=== PATIENT | male | born 1990 | race African-American/Black ===

== ENCOUNTER 2017-12-09 22:06 | Emergency (ER) | payer SELFPAY ==
[~2017-12-09] VITALS: Ht 165.1 cm; Wt 74.8 kg
[~2017-12-09 22:06] MED LIST: AMOX500C2 PO; NAPR-243 PO; PRM25T PO; TRM50T PO
--- OUTSIDE RECORDS SUMMARY | 2017-12-09 22:12 | XMS REPORT | Continuity of Care Document ---
Author Author [facility] Organization [facility] Address Unknown Phone Unavailable Allergies Active Description Code Type Severity Reaction Onset Reported/Identified Relationship to Patient Clinical Status Yes No Known Drug Allergies [id number] Drug Allergy Unknown N/A 09/27/2011 Medications There is no data. Problems Date Dx Coded Attending Type Code Diagnosis Diagnosed By 09/27/2011 Ot 527.2 09/27/2011 Ot 784.92 10/17/2011 Ot 787.03 12/22/2013 JANETTE GHOTRA [employer] Ot 726.90 12/22/2013 JANETTE GHOTRA [employer] Ot 840.9 12/22/2013 JANETTE GHOTRA [employer] Ot 959.2 12/22/2013 JANETTE GHOTRA [employer] Ot E000.0 12/22/2013 JANETTE GHOTRA [employer] Ot E015.0 12/22/2013 JANETTE GHOTRA [employer] Ot E849.3 12/22/2013 JANETTE GHOTRA [employer] Ot E927.3 04/12/2015 CRISTY HUNTER DO Ot 784.0 04/12/2015 CRISTY HUNTER DO Ot 787.02 06/26/2015 MARIZA FOWLER MD Ot 305.1 06/26/2015 MARIZA FOWLER MD Ot 931 06/26/2015 MARIZA FOWLER MD Ot E915 Procedures There is no data. Results There is no data. Encounters ACCT No. Visit Date/Time Discharge Status Pt. Type Provider Facility Loc./Unit Complaint [id number] 06/26/2015 15:04:00 06/26/2015 15:51:00 DIS Emergency MARIZA FOWLER MD [facility] ER [id number] 04/12/2015 19:52:00 04/12/2015 22:16:00 DIS Emergency CRISTY HUNTER DO [facility] ER [id number] 12/22/2013 19:19:00 12/22/2013 20:15:00 DIS Emergency JANETTE GHOTRA APRN [facility] [id number] 10/17/2011 16:08:00 Document Registration [id number] 09/27/2011 16:06:00 Document Registration
[2017-12-09] MEDS ORDERED: LACTATED RINGERS 1,000 ML IV ONE (22:20)
[2017-12-09] MEDS ORDERED: KETOROLAC 30 MG/ML VIAL IVP STA (22:20)
[2017-12-09] MEDS ORDERED: methylPREDNISolone 125 MG (Solu-MEDROL) VIAL IV STA (22:20)
--- NOTE | 2017-12-09 22:25 | ED EENT ---
History of Present Illness General Stated Complaint: TONSILLITIS Source: patient History of Present Illness Date Seen by Provider: Dec 09, 2017 Time Seen by Provider: 22:15 Initial Comments C/O SORE THROAT X 1 WEEK, GETTING WORSE HAVING DIFFICULTY SWALLOWING AND BREATHING AND SWALLOWING SALIVA, ESPECIALLY WHEN LAYING DOWN VOICE IS MUFFLED HAS HAD SUBJECTIVE FEVER NO COUGH OR URI SYMPTOMS NO KNOWN SICK CONTACTS NO HISTORY OF SIMILAR NO DR Allergies and Home Medications Allergies Coded Allergies: No Known Drug Allergies (Unverified , 09/27/11) Home Medications No Active Prescriptions or Reported Meds Review of Systems Constitutional: fever Eyes: No Symptoms Reported Ears: No Symptoms Reported Nose: no symptoms reported Mouth: no symptoms reported Throat: see HPI, pain, muffled, painful swallowing Respiratory: no symptoms reported Past Pbekejw-Jxtgzw-Pjrbeb Hx Patient Social History Recent Foreign Travel: No Contact w/Someone Who Travel: No Immunizations Up To Date Tetanus Booster (TDap): Unknown Surgeries Surgeries: Ear Surgery Neurological Neurological Disorders: Headaches /Migraines Reproductive System Hx Reproductive Disorders: No Sexually Transmitted Disease: No Physical Exam Vital Signs Vital Sign - Last 12Hours 12/09/17 22:25 Temp 98.8 Pulse 89 Resp 18 B/P (MAP) 162/107 (125) Pulse Ox 99 O2 Delivery Room Air General Appearance: WD/WN, no apparent distress, other (SPITTING OUT SALIVA, UNABLE TO SWALLOW) Eyes: bilateral eye normal inspection, bilateral eye PERRL, bilateral eye EOMI Mouth/Throat: No excessive drooling, pharynx swelling, tonsillar swelling, uvula swelling, voice changes (SLIGHTLY MUFFLED), other (APPEARS TO HAVE POSTERIOR PHARYNGEAL SWELLING--APPEARS THAT POSTERIOR PHARYNX IS TOUCHING UVULA , WELL LEFT TONSILLAR AND PRE-TONSILLAR AREA . ) Neck: full range of motion, supple, lymphadenopathy (R), lymphadenopathy (L), tender lateral Cardiovascular: regular rate, rhythm, no murmur Respiratory: normal breath sounds, no respiratory distress Neurologic/Psychiatric: customer operations representative II-XII nml as tested, no motor/sensory deficits, alert, normal mood/affect, oriented x 3 Skin: normal color, warm/dry, No rash Progress/Results/Core Measures Results/Orders Lab Results Laboratory Tests Test 12/09/17 22:18 12/09/17 22:25 Range/Units Group A Streptococcus Screen POSITIVE H NEGATIVE White Blood Count 17.1 H 4.3-11.0 10^3/uL Red Blood Count 4.37 4.35-5.85 10^6/uL Hemoglobin 13.9 13.3-17.7 G/DL Hematocrit 39 L 40-54 % Mean Corpuscular Volume 89 80-99 FL Mean Corpuscular Hemoglobin 32 25-34 PG Mean Corpuscular Hemoglobin Concent 36 32-36 G/DL Red Cell Distribution Width 12.9 10.0-14.5 % Platelet Count 322 130-400 10^3/uL Mean Platelet Volume 8.3 7.4-10.4 FL Neutrophils (%) (Auto) 82 H 42-75 % Lymphocytes (%) (Auto) 8 L 12-44 % Monocytes (%) (Auto) 8 0-12 % Eosinophils (%) (Auto) 1 0-10 % Basophils (%) (Auto) 0 0-10 % Neutrophils # (Auto) 14.1 H 1.8-7.8 X 10^3 Lymphocytes # (Auto) 1.4 1.0-4.0 X 10^3 Monocytes # (Auto) 1.4 H 0.0-1.0 X 10^3 Eosinophils # (Auto) 0.2 0.0-0.3 10^3/uL Basophils # (Auto) 0.0 0.0-0.1 10^3/uL Neutrophils % (Manual) 76 % Lymphocytes % (Manual) 12 % Monocytes % (Manual) 3 % Eosinophils % (Manual) 1 % Basophils % (Manual) 0 % Band Neutrophils 8 % Blood Morphology Comment NORMAL Sodium Level 138 135-145 MMOL/L Potassium Level 3.4 L 3.6-5.0 MMOL/L Chloride Level 102 98-107 MMOL/L Carbon Dioxide Level 26 21-32 MMOL/L Anion Gap 10 5-14 MMOL/L Blood Urea Nitrogen 8 7-18 MG/DL Creatinine 0.75 0.60-1.30 MG/DL Estimat Glomerular Filtration Rate > 60 BUN/Creatinine Ratio 11 Glucose Level 83 70-105 MG/DL Lactic Acid Level 0.73 0.50-2.00 MMOL/L Calcium Level 9.3 8.5-10.1 MG/DL Total Bilirubin 0.5 0.1-1.0 MG/DL Aspartate Amino Transf (AST/SGOT) 30 5-34 U/L Alanine Aminotransferase (ALT/SGPT) 31 0-55 U/L Alkaline Phosphatase 76 40-136 U/L Total Protein 8.2 6.4-8.2 GM/DL Albumin 4.2 3.2-4.5 GM/DL Monoscreen NEGATIVE NEGATIVE My Orders Orders - ELSACRISTY Cancino DO Saline Lock/Iv-Start (12/09/17 22:20) Ct Neck (Soft Tissue) W (12/09/17 22:20) Cbc With Automated Diff (12/09/17 22:20) Comprehensive Metabolic Panel (12/09/17 22:20) Lactic Acid Analyzer (12/09/17 22:20) Monotest (12/09/17 22:20) Rapid Strep A Screen (12/09/17 22:20) Blood Culture (12/09/17 22:20) Lactated Ringers (Lr 1000 Ml Iv Solution (12/09/17 22:20) Methylprednisolone Sod Succ (Solu-Medrol (12/09/17 22:20) Ketorolac Injection (Toradol Injection) (12/09/17 22:20) Manual Differential (12/09/17 22:25) Iohexol Injection (Omnipaque 350 Mg/Ml 1 (12/09/17 23:15) Sodium Chloride Flush (Catheter Flush Sy (12/09/17 23:15) Ceftriaxone Injection (Rocephin Injectio (12/10/17 00:00) Medications Given in ED Current Medications Medications Dose Ordered Sig/Dafne Route Start Time Stop Time Status Last Admin Dose Admin Ceftriaxone Sodium 2000 mg/ Dextrose/Water 50 ml @ 100 mls/hr ONCE ONCE IV 12/10/17 00:00 12/10/17 00:29 DC 12/10/17 00:19 100 MLS/HR Iohexol 75 ml ONCE ONCE IV 12/09/17 23:15 12/10/17 00:25 DC 12/09/17 23:13 75 ML Lactated Ringer's 1,000 ml @ 0 mls/hr Q0M ONCE IV 12/09/17 22:20 12/09/17 22:23 DC 12/09/17 22:41 0 MLS/HR Sodium Chloride 10 ml NEEDED PRN IV 12/09/17 23:15 12/10/17 00:42 DC 12/09/17 23:14 10 ML Vital Signs/I&O Vital Sign - Last 12Hours 12/09/17 12/09/17 12/10/17 12/10/17 22:25 22:45 00:06 00:38 Temp 98.8 98.8 98.2 Pulse 89 88 74 Resp 18 16 18 B/P (MAP) 162/107 (125) 121/82 (95) Pulse Ox 99 99 97 O2 Delivery Room Air Room Air Room Air Progress Note : Progress Note NO DETERIORATION IN PT'S CONDITION DURING ER STAY Diagnostic Imaging Comments CT NECK SOFT TISSUES--MARKED SWELLING AND IRREGULAR ENHANCEMENTS OF TONSILS- SUGGESTING TONSILLITIS. 10 MM FOCAL FLUID COLLECTION IN LEFT ADENOIDS, LIKELY REPRESENTING TONSILLAR ABSCESS, CAUSING MARKED SWELLING/NARROWING OF OROPHARYNX- -PER [facility] VIA FAX 2 [id number] Reviewed: Reviewed by Me Departure Communication (Admissions) Progress Notes 607--CONTACTED Hayley SUE NP TALENT SPECIALIST FOR ENT. DR. LOVE IS OUT OF TOWN ALL WEEK AND WILL BE AVAILABLE UNTIL 12/17/17. ADVISES TRANSFER. 2356--CALLED [facility] DIRECT CALL 2358--SPOKE WITH DR. RAMOS, ENT TALENT SPECIALIST. HE ACCEPTS PT FOR TRANSFER AND ADVISES TO SEND TO ER AND THEY ARE TO [facility] RESIDENT SOON PT ARRIVES. 0002--SPOKE WITH DR. MCGHEE, ER PHYSICIAN AND REPORT GIVEN. Impression Impression: Primary Impression: Peritonsillar abscess Disposition: XF SHT-TRM HOSP Condition: Stable Departure-Patient Inst. Referrals: NO,LOCAL PHYSICIAN (PCP/Family) Primary Care Physician Scripts No Active Prescriptions or Reported Meds CRISTY HUNTER DO Dec 09, 2017 22:25
[2017-12-09 22:39] LABS: BASOPHILS % (AUTO) 0 % (0-10); EOSINOPHILS # (AUTO) 0.2 10^3/uL (0.0-0.3); EOSINOPHILS % (AUTO) 1 % (0-10); HEMATOCRIT 39 % (40-54); HEMOGLOBIN 13.9 G/DL (13.3-17.7); LYMPHOCYTES # (AUTO) 1.4 X 10^3 (1.0-4.0); LYMPHOCYTES % (AUTO) 8 % (12-44); MEAN CORPUSCULAR HEMOGLOBIN 32 PG (25-34); MEAN CORPUSCULAR HGB CONC 36 G/DL (32-36); MEAN CORPUSCULAR VOLUME 89 FL (80-99); MEAN PLATELET VOLUME 8.3 FL (7.4-10.4); MONOCYTES # (AUTO) 1.4 X 10^3 (0.0-1.0); MONOCYTES % (AUTO) 8 % (0-12); NEUTROPHILS # (AUTO) 14.1 X 10^3 (1.8-7.8); NEUTROPHILS % (AUTO) 82 % (42-75); PLATELET COUNT 322 10^3/uL (130-400); RED BLOOD COUNT 4.37 10^6/uL (4.35-5.85); RED CELL DISTRIBUTION WIDTH 12.9 % (10.0-14.5); WHITE BLOOD COUNT 17.1 10^3/uL (4.3-11.0)
[2017-12-09 23:00] LABS: ALANINE AMINOTRANSFERASE 31 U/L (0-55); ALBUMIN 4.2 GM/DL (3.2-4.5); ALKALINE PHOSPHATASE 76 U/L (40-136); BILIRUBIN,TOTAL 0.5 MG/DL (0.1-1.0); BUN/CREATININE RATIO 11; CALCIUM 9.3 MG/DL (8.5-10.1); CARBON DIOXIDE 26 MMOL/L (21-32); CHLORIDE 102 MMOL/L (98-107); CREATININE SERUM 0.75 MG/DL (0.60-1.30); GFR ESTIMATED > 60; GLUCOSE 83 MG/DL (70-105); POTASSIUM 3.4 MMOL/L (3.6-5.0); SODIUM 138 MMOL/L (135-145); TOTAL PROTEIN 8.2 GM/DL (6.4-8.2)
[2017-12-09] MEDS ORDERED: IOHEXOL 350 MG/ML 100 ML (OMNIPAQUE 350) VIAL IV ONE (23:15)
[2017-12-09] MEDS ORDERED: CATHETER FLUSH 10 ML SYR IV PRN (23:15)
[2017-12-09 23:17] LABS: BAND NEUTROPHILS 8 %; BASOPHILS % (MANUAL) 0 %; EOSINOPHILS % (MANUAL) 1 %; LYMPHOCYTES % (MANUAL) 12 %; MONOCYTES % (MANUAL) 3 %; NEUTROPHILS % (MANUAL) 76 %; RBC MORPH NORMAL
[2017-12-10] MEDS ORDERED: cefTRIAXone INJECTION 2,000 MG in D5W 50 ML IVPB SOLUTION 50 ML IV ONE ×2
[2017-12-10 00:06] VITALS: BP 121/82
[2017-12-10 00:38] VITALS: BP 119/79
--- NOTE | 2017-12-10 07:41 | Diagnostic Imaging Report ---
PROCEDURE: CT neck soft tissue with contrast. TECHNIQUE: Multiple contiguous axial images were obtained through the neck after the administration of contrast. INDICATION: Sore throat. COMPARISON: None available. FINDINGS: There is marked swelling and heterogeneous enhancement of the adenoids and tonsils resulting in narrowing of the oropharynx. In the region of the left palatine tonsils there is a 1.1 x 1.0 cm area of ovoid hypodensity. There is asymmetric hypoattenuation extending along the posterior lateral margin of the left oropharynx. However, there is no fluid extending into the mediastinum. Parapharyngeal fat spaces remain preserved bilaterally. No abnormal wall thickening of the hypopharynx. Laryngeal folds are grossly normal. Lung apices are clear. No cervical lymphadenopathy. There are multiple mildly enlarged left-sided cervical lymph nodes present which are likely reactive in nature. Orbits are unremarkable. Paranasal sinuses are clear where seen. No abnormality within the visualized portions of the brain. No concerning osseous lesion. IMPRESSION: 1. Tonsillitis with asymmetric hypoenhancing phlegmonous change versus developing abscess in the left palatine tonsil (preliminary report indicated this was in the adenoids). There is narrowing of the oropharynx and nasopharynx airway, hypopharyngeal airway remains patent. 2. Mildly enlarged left-sided cervical lymph nodes are reactive in nature. Dictated by: Dictated on workstation # [id number]
== END 2017-12-10 00:41 | disposition short-term general hospital (02) ==
LOC: EDUNIT# 22:06 → ER 22:07
DX: J36 Peritonsillar abscess (principal); G43.909 Migraine, unspecified, not intractable, without status migrainosus
CPT/HCPCS: 36415; 70491; 80053; 83605; 85007; 85027; 86308; 87040; 87430

== ENCOUNTER 2018-03-10 15:41 | Emergency (ER) | payer SELFPAY ==
[~2018-03-10] VITALS: Ht 165.1 cm; Wt 72.6 kg
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
[2018-03-10] MEDS ORDERED: TETANUS,DIPTH,PERTUSS P/F (BOOSTRIX) 0.5 ML VIAL IM STA (17:28)
[2018-03-10] MEDS ORDERED: LIDOCAINE/EPI 2% 1:100,00 (XYLOCAINE) 20 ML VIAL ONE (17:40)
[2018-03-10 18:23] VITALS: BP 122/86
== END 2018-03-10 18:23 | disposition home or self-care (01) ==
LOC: EDUNIT# 15:41 → ER 15:42
DX: S01.511A Laceration without foreign body of lip, initial encounter (principal); G43.909 Migraine, unspecified, not intractable, without status migrainosus; R40.2142 Coma scale, eyes open, spontaneous, at arrival to emergency department; R40.2252 Coma scale, best verbal response, oriented, at arrival to emergency department; R40.2362 Coma scale, best motor response, obeys commands, at arrival to emergency department; F17.210 Nicotine dependence, cigarettes, uncomplicated; Z23 Encounter for immunization; W18.30XA Fall on same level, unspecified, initial encounter; W51.XXXA Accidental striking against or bumped into by another person, initial encounter
CPT/HCPCS: 12011; 90471; 90715

== ENCOUNTER 2019-07-24 15:46 | Emergency (ER) | payer SELFPAY ==
[~2019-07-24] VITALS: Ht 165 cm; Wt 79.0 kg
[2019-07-24] MEDS ORDERED: BUP/EPI 0.5% 1:200,000 (SENSORCAINE) 30 ML VIAL INJ ONE (16:00)
--- NOTE | 2019-07-24 16:05 | NUR ---
USED LOCAL FROM DENTAL BOX FOR INJECTION
--- NOTE | 2019-07-24 16:11 | ED EENT ---
History of Present Illness General Chief Complaint: Dental Problems/Pain Stated Complaint: RT JAW PAIN Nursing Triage Note: PT CO R JAW PAIN, STATES HAS SORE SWOLLEN GUMS FOR A COUPLE DAYS Source: patient Exam Limitations: no limitations History of Present Illness Date Seen by Provider: Jul 24, 2019 (n) Time Seen by Provider: 16:00 Initial Comments Patient comes in with right sided jaw pain. Reports onset of pain for the past 2-3 days. Denies relief with groe-jng-rqhuntt medications. Denies drainage or foul taste in the mouth. Reports right-sided facial swelling with associated tension headache from the jaw pain. Denies any other issues at this time. Timing/Duration: intermittent Severity: mild Location: dental Prearrival Treatment: over the counter meds Modifying Factors: Improves With Activity Associated Symptoms: facial pain/swelling; No fever, No malaise; tooth pain Allergies and Home Medications Allergies Coded Allergies: No Known Drug Allergies (Unverified , 09/27/11) Home Medications No Active Prescriptions or Reported Meds Patient Home Medication List Home Medication List Reviewed: Yes Review of Systems Review of Systems Constitutional: no symptoms reported Eyes: No Symptoms Reported Ears: No Symptoms Reported Nose: no symptoms reported Mouth: pain, swelling; denies purulent discharge Throat: no symptoms reported Respiratory: no symptoms reported Cardiovascular: no symptoms reported Gastrointestinal: no symptoms reported Musculoskeletal: no symptoms reported Skin: no symptoms reported Neurological: No Symptoms Reported Hematologic/Lymphatic: No Symptoms Reported Immunological/Allergic: no symptoms reported Past Geiykwe-Rgzmyj-Wtqafz Hx Patient Social History Alcohol Use: Regular Use Number of Drinks Today: 0 Alcohol Beverage of Choice: Beer Recreational Drug Use: Yes (pot) Drug of Choice: cannibus Smoking Status: Current Everyday Smoker Type Used: Cigarettes 2nd Hand Smoke Exposure: Yes Recent Foreign Travel: No Contact w/Someone Who Travel: No Recent Infectious Disease Expo: No Recent Hopitalizations: No Immunizations Up To Date Tetanus Booster (TDap): Unknown Seasonal Allergies Seasonal Allergies: No Past Medical History Surgeries: Yes (BMT'S, LASER SURGERY ON GUMS) Ear Surgery Respiratory: No Cardiac: No Neurological: Yes Headaches /Migraines Reproductive Disorders: No Sexually Transmitted Disease: No Genitourinary: No Gastrointestinal: No Musculoskeletal: No Endocrine: No HEENT: No Cancer: No Psychosocial: No Integumentary: No Blood Disorders: No Family Medical History No Pertinent Family Hx Physical Exam Vital Signs Vital Signs - First Documented 07/24/19 15:50 Temp 36.2 Pulse 75 Resp 18 B/P (MAP) 128/94 (105) Pulse Ox 100 Height, Weight, BMI Height: 5'5.00" Weight: 160lbs. oz. 72.748792ql; 29.00 BMI Method:Stated General Appearance: WD/WN, no apparent distress Eyes: bilateral eye normal inspection, bilateral eye PERRL, bilateral eye EOMI Ears: bilateral ear auricle normal, bilateral ear canal normal Nose: normal inspection Mouth/Throat: dental tenderness, mandibular swelling Neck: non-tender (1) Respiratory: normal breath sounds, no respiratory distress Gastrointestinal: non tender Neurologic/Psychiatric: alert, normal mood/affect, oriented x 3 Skin: normal color, warm/dry Procedures/Interventions Dental Procedures: Inferior Alveolar Nerve Block with 0.5% Bipuvicaine w/epin ephrine Suture Size: 4-0 Progress/Results/Core Measures Results/Orders My Orders Orders - JANETTE GHOTRA APRN Bupivacaine 0.5% W/Epi Inj (Sensorcaine (07/24/19 16:00) Vital Signs/I&O 07/24/19 15:50 Temp 36.2 Pulse 75 Resp 18 B/P (MAP) 128/94 (105) Pulse Ox 100 Blood Pressure Mean: 105 Departure Impression Primary Impression: Pericoronitis Disposition: 01 HOME, SELF-CARE Condition: Improved Departure-Patient Inst. Decision time for Depature: 16:16 Referrals: NO,LOCAL PHYSICIAN (PCP/Family) Primary Care Physician Patient Instructions: Periodontal Disease, Gingivitis (DC) Add. Discharge Instructions: 1. You must see a dentist. Call tomorrow to make an appointment to be seen. All discharge instructions reviewed with patient and/or family. Voiced understanding. Scripts Naproxen (Naprosyn) 500 Mg Tablet 500 MG PO BID PRN for PAIN-MODERATE, #30 TAB 0 Refills Prov: JANETTE GHOTRA APRN 07/24/19 Amoxicillin (Amoxicillin) 500 Mg Capsule 500 MG PO TID, #21 CAP Prov: JANETTE GHOTRA APRN 07/24/19 Images Mouth/Nose 1 - Tenderness JANETTE GHOTRA APRN Jul 24, 2019 16:11
[2019-07-24] MEDS ORDERED: AMOX500C2 PO (16:16)
[2019-07-24] MEDS ORDERED: NAPR-1071 PO (16:16)
[2019-07-24 16:20] VITALS: BP 128/94
== END 2019-07-24 16:23 | disposition home or self-care (01) ==
LOC: EDUNIT# 15:46 → ER 15:48
DX: K05.30 Chronic periodontitis, unspecified (principal); G43.909 Migraine, unspecified, not intractable, without status migrainosus; F17.210 Nicotine dependence, cigarettes, uncomplicated
CPT/HCPCS: 99282

== ENCOUNTER 2019-11-25 14:53 | Emergency (ER) | payer SELFPAY ==
[~2019-11-25] VITALS: Ht 177 cm; Wt 73.0 kg
[~2019-11-25 14:53] MED LIST changes: +NAPR-1071 PO
--- NOTE | 2019-11-25 14:59 | NUR ---
ATTEMPT TO CALL PT BACK ET PT NOT IN WAITING ROOM.
[2019-11-25] MEDS ORDERED: PEN G BENZ (BICILLIN LA) 1.2 M UN/2 ML SYR IM ONE (15:15)
[2019-11-25] MEDS ORDERED: CIPROFLOXACIN 0.3% (CILOXAN) 2.5 ML BTL OP SCH (15:15)
--- NOTE | 2019-11-25 15:26 | ED EENT ---
History of Present Illness General Chief Complaint: Eye Problems Stated Complaint: R EYE IRRITATION Nursing Triage Note: RIGHT EYE SWELLING AND DRAINING X2-4 DAYS. Source: patient Exam Limitations: no limitations History of Present Illness Date Seen by Provider: Nov 25, 2019 Time Seen by Provider: 15:22 Initial Comments 3-4 day history of right eye redness, drainage, irritation and swelling of the eyelid. No known cause. No other symptoms. Timing/Duration: abrupt Location: eye (R) Prearrival Treatment: no prearrival treatment Associated Symptoms: denies symptoms Allergies and Home Medications Allergies Coded Allergies: No Known Drug Allergies (Unverified , 09/27/11) Patient Home Medication List Home Medication List Reviewed: Yes Review of Systems Review of Systems Constitutional: see HPI Eyes: See HPI, Blurred Vision, Drainage Ears: No Symptoms Reported Nose: no symptoms reported Mouth: no symptoms reported Throat: no symptoms reported Respiratory: no symptoms reported Cardiovascular: no symptoms reported Musculoskeletal: no symptoms reported Skin: no symptoms reported Neurological: No Symptoms Reported Hematologic/Lymphatic: No Symptoms Reported Immunological/Allergic: no symptoms reported Past Xyepjvl-Nlehlm-Uufryz Hx Patient Social History Alcohol Use: Occasionally Uses Number of Drinks Today: AA Alcohol Beverage of Choice: Beer Recreational Drug Use: No (POT) Drug of Choice: cannibus Smoking Status: Current Everyday Smoker Type Used: Cigarettes 2nd Hand Smoke Exposure: Yes Recent Foreign Travel: No Contact w/Someone Who Travel: No Recent Infectious Disease Expo: No Recent Hopitalizations: No Immunizations Up To Date Tetanus Booster (TDap): Unknown Seasonal Allergies Seasonal Allergies: No Past Medical History Surgeries: Yes (BMT'S, LASER SURGERY ON GUMS) Ear Surgery Respiratory: No Cardiac: No Neurological: Yes Headaches /Migraines Reproductive Disorders: No Sexually Transmitted Disease: No Genitourinary: No Gastrointestinal: No Musculoskeletal: No Endocrine: No HEENT: No Cancer: No Psychosocial: No Integumentary: No Blood Disorders: No Family Medical History No Pertinent Family Hx Physical Exam Vital Signs Vital Signs - First Documented 11/25/19 15:04 Temp 36.8 Pulse 87 Resp 18 B/P (MAP) 136/91 (106) Pulse Ox 99 O2 Delivery Room Air Height, Weight, BMI Height: 5'5.00" Weight: 160lbs. oz. 72.567678mp; 23.00 BMI Method:Stated General Appearance: WD/WN, no apparent distress Eyes: right eye other (right eye has conjunctival inflammation with a bit of chemosis. The right upper eyelid is slightly swollen); bilateral eye PERRL, bilateral eye EOMI Ears: bilateral ear auricle normal, bilateral ear canal normal, bilateral ear TM normal Nose: normal inspection; No active bleeding Neck: non-tender, full range of motion Respiratory: no respiratory distress, no accessory muscle use Skin: normal color, warm/dry Procedures/Interventions Suture Size: 4-0 Progress/Results/Core Measures Results/Orders My Orders Orders - JANETTE GHOTRA APRN Penicillin G Benzathine Inject (Bicillin (11/25/19 15:15) Medications Given in ED Current Medications Medications Dose Ordered Sig/Dafne Route Start Time Stop Time Status Last Admin Dose Admin Penicillin G Benzathine 1,200,000 unit ONCE ONCE IM 11/25/19 15:15 11/25/19 15:22 DC 11/25/19 15:36 1,200,000 UNIT Vital Signs/I&O 11/25/19 15:04 Temp 36.8 Pulse 87 Resp 18 B/P (MAP) 136/91 (106) Pulse Ox 99 O2 Delivery Room Air Blood Pressure Mean: 106 Departure Communication (Admissions) Patient states that he has no way financially to fill any medications. For this reason I'll give him an injection of penicillin here and eyedrops here. Impression Primary Impression: Bacterial conjunctivitis of right eye Disposition: HOME, SELF-CARE Condition: Stable Departure-Patient Inst. Decision time for Depature: 15:24 Referrals: MARYLU NAVARRO OD NO,LOCAL PHYSICIAN (PCP) Primary Care Physician Patient Instructions: Conjunctivitis (Pinkeye) Add. Discharge Instructions: Use the antibiotic drops 2 drops into the lower eyelid of the right eye every 2- 4 hours for the next 7 days.. Return to ER for any worsening or other concerns. Follow-up with Dr. Navarro THIS WEEK for recheck JANETTE GHOTRA APRN Nov 25, 2019 15:25
[2019-11-25] MEDS ORDERED: OFLOXACIN 0.3% OPHTH SOLN 5 ML OD SCH (16:00)
[2019-11-25 16:03] VITALS: BP 136/91
== END 2019-11-25 16:03 | disposition home or self-care (01) ==
LOC: EDUNIT# 14:53 → ER 14:54
DX: H10.9 Unspecified conjunctivitis (principal); G43.909 Migraine, unspecified, not intractable, without status migrainosus; F17.210 Nicotine dependence, cigarettes, uncomplicated
CPT/HCPCS: 96372; 99284

== ENCOUNTER 2020-10-13 09:12 | Emergency (ER) | payer SELFPAY ==
[~2020-10-13] VITALS: Ht 165 cm; Wt 72.0 kg
[2020-10-13 09:19] VITALS: BP 136/87
[2020-10-13] MEDS ORDERED: PENI500T PO (09:43)
--- NOTE | 2020-10-13 09:44 | ED EENT ---
History of Present Illness General Chief Complaint: Dental Problems/Pain Stated Complaint: GUM LINE SWOLLEN Nursing Triage Note: PT CO OF DENTAL PAIN L LOWER JAW BACK TOOTH. PAIN,SWELLING AND OOZING SMALL AMOUNT OF BLOOD. STARTED 2 WEEKS AGO. HAS NOT SEEN DENTIST Source: patient Exam Limitations: no limitations History of Present Illness Date Seen by Provider: Oct 13, 2020 Time Seen by Provider: 09:30 Initial Comments Patient is a 30-year-old male who presents to the emergency department today with a chief complaint of left posterior molar swelling and discomfort for 2 weeks. Patient states his pain and swelling is actually improved but he looked in the mirror and saw swelling over his tooth this morning and that became concerning for him. Patient denies any fevers or chills. He denies any difficulty with chewing currently. He states he has been drinking alcohol to help relieve the pain. All other review of systems reviewed and negative except as stated Timing/Duration: gradual Location: dental Prearrival Treatment: no prearrival treatment Associated Symptoms: tooth pain Allergies and Home Medications Allergies Coded Allergies: No Known Drug Allergies (Unverified , 09/27/11) Home Medications No Active Prescriptions or Reported Meds Patient Home Medication List Home Medication List Reviewed: Yes Review of Systems Review of Systems Constitutional: no symptoms reported Eyes: No Symptoms Reported Ears: No Symptoms Reported Nose: no symptoms reported Mouth: pain (Dental pain), swelling Throat: no symptoms reported Respiratory: no symptoms reported Cardiovascular: no symptoms reported All Other Systems Reviewed Negative Unless Noted: Yes Past Hsahyyx-Ecxjjx-Leiaqp Hx Patient Social History Alcohol Use: Rarely Uses Number of Drinks Today: 0 Alcohol Beverage of Choice: Beer Recreational Drug Use: Yes (POT/METH) Drug of Choice: cannibus Smoking Status: Current Everyday Smoker Type Used: Cigarettes 2nd Hand Smoke Exposure: Yes Recent Foreign Travel: No Contact w/Someone Who Travel: No Recent Infectious Disease Expo: No Recent Hopitalizations: No Physical Abuse: No Sexual Abuse: No Immunizations Up To Date Tetanus Booster (TDap): Unknown Seasonal Allergies Seasonal Allergies: No Past Medical History Surgeries: Yes (BMT'S, LASER SURGERY ON GUMS) Ear Surgery Respiratory: No Cardiac: No Neurological: Yes Headaches /Migraines Reproductive Disorders: No Sexually Transmitted Disease: No Genitourinary: No Gastrointestinal: No Musculoskeletal: No Endocrine: No HEENT: No Cancer: No Psychosocial: No Integumentary: No Blood Disorders: No Family Medical History No Pertinent Family Hx Physical Exam Vital Signs Vital Signs - First Documented 10/13/20 09:19 Temp 36.6 Pulse 85 Resp 18 B/P (MAP) 136/87 (103) Pulse Ox 96 Height, Weight, BMI Height: 5'5.00" Weight: 160lbs. oz. 72.627769ke; 26.00 BMI Method:Stated General Appearance: WD/WN, no apparent distress Eyes: bilateral eye normal inspection, bilateral eye PERRL, bilateral eye EOMI Nose: normal inspection Mouth/Throat: normal mouth inspection, other (Left lower wisdom tooth with eruption and obvious cavity, surrounding gingival edema, mild; no serosanguineous drainage) Cardiovascular: regular rate, rhythm Respiratory: no respiratory distress Skin: normal color, warm/dry Procedures/Interventions Suture Size: 4-0 Progress/Results/Core Measures Results/Orders Vital Signs/I&O 10/13/20 09:19 Temp 36.6 Pulse 85 Resp 18 B/P (MAP) 136/87 (103) Pulse Ox 96 Blood Pressure Mean: 103 Departure Impression Primary Impression: Dental caries Additional Impression: Pain, dental Disposition: 01 HOME, SELF-CARE Condition: Stable Departure-Patient Inst. Decision time for Depature: 09:41 Referrals: [facility] [place] PHYSIC[place] (PCP) Primary Care Physician Patient Instructions: Dental Pain (DC) Add. Discharge Instructions: You need to swish with half peroxide half water rinses 3 times a day. Make sure you are brushing your teeth well twice daily. I have given you a prescription for penicillin for your dental pain. Take this as directed until all this medication is gone. Use [id number] Aleve and Tylenol as needed for pain and as directed on the bottles. Return to the emergency room for any increased swelling, fever, drainage or othe r emergent concerns. I have electronically transmitted your prescription for antibiotics to your [facility] pharmacy. Scripts Penicillin V Potassium (Penicillin V Potassium) 500 Mg Tablet 500 MG PO Q6H for 7 Days, #28 TAB Prov: LUCÍA TANG MD 10/13/20 LUCÍA TANG MD Oct 13, 2020 09:43
== END 2020-10-13 09:47 | disposition home or self-care (01) ==
LOC: EDUNIT# 09:12 → ER 09:14
DX: K02.9 Dental caries, unspecified (principal); F17.210 Nicotine dependence, cigarettes, uncomplicated
CPT/HCPCS: 99282

== ENCOUNTER 2022-06-01 13:58 | Emergency (ER) | payer SELFPAY ==
[~2022-06-01] VITALS: Ht 165 cm; Wt 72.6 kg
[~2022-06-01 13:58] MED LIST changes: +PENI500T PO
[2022-06-01] MEDS ORDERED: ROCURONIUM 50 MG/5 ML (ZEMURON) VIAL IV ONE (14:01)
[2022-06-01] MEDS ORDERED: KETAMINE 50 MG/ML 10 ML VIAL IJ ONE (14:01)
[2022-06-01] MEDS ORDERED: MIDAZOLAM 5 MG/5 ML (VERSED) VIAL IJ ONE (14:01)
[2022-06-01] MEDS ORDERED: SUCCINYLCHOLINE INJ 100 MG/5 ML SYR/VIAL INJ ONE (14:01)
[2022-06-01] MEDS ORDERED: fentaNYL INJ 100 MCG/2 ML AMP IV ONE (14:01)
--- NOTE | 2022-06-01 14:56 | ED EENT ---
History of Present Illness General Chief Complaint: Oral/Throat Problems Stated Complaint: SORE THROAT, Source: patient Exam Limitations: no limitations (MARTA EASLEY) History of Present Illness Date Seen by Provider: Jun 01, 2022 Time Seen by Provider: 14:54 Initial Comments Patient is a 31-year-old male who presents ED with sore throat difficulty swallowing difficulty breathing. Symptoms started on Sunday. States he start ed having sore throat. Today started having difficulty swallowing tolerating secretions and difficulty breathing. Denies of any trauma. Pain to the right side of his neck. Denies of any fever, nausea, vomiting, diarrhea or cough. History of smoking. Patient states ice chips improves his pain. Patient reports coughing up purulent discharge. He is able to swallow but reports difficulty. (MARTA EASLEY) Allergies and Home Medications Allergies Coded Allergies: No Known Drug Allergies (Unverified , 09/27/11) Patient Home Medication List Home Medication List Reviewed: Yes (MARTA EASLEY) Penicillin V Potassium (Penicillin V Potassium) 500 Mg Tablet, 500 MG PO Q6H Prescribed by: LUCÍA TANG on 10/13/20 0943 Review of Systems Review of Systems Constitutional: No chills, No diaphoresis, No malaise, No weakness Eyes: Denies Blurred Vision, Denies Drainage, Denies Decreased Acuity Ears: Denies Dizziness, Denies Pain Nose: denies clots, denies congestion, denies bloody discharge Throat: pain, swelling Respiratory: No cough, No dyspnea on exertion, No short of breath Cardiovascular: No chest pain Musculoskeletal: No joint swelling, No muscle pain, No muscle stiffness (MARTA EASLEY) All Other Systems Reviewed Negative Unless Noted: Yes (MARTA EASLEY) Past Topoqot-Xvimyy-Rnsujg Hx Immunizations Up To Date Tetanus Booster (TDap): Unknown (MARTA EASLEY) Seasonal Allergies Seasonal Allergies: No (MARTA EASLEY) Past Medical History Surgeries: Yes (BMT'S, LASER SURGERY ON GUMS) Ear Surgery Respiratory: No Cardiac: No Neurological: Yes Headaches /Migraines Reproductive Disorders: No Sexually Transmitted Disease: No Genitourinary: No Gastrointestinal: No Musculoskeletal: No Endocrine: No HEENT: No Cancer: No Psychosocial: No Integumentary: No Blood Disorders: No (MARTA EASLEY) Family Medical History No Pertinent Family Hx (MARTA EASLEY) Physical Exam Vital Signs Vital Signs - First Documented 06/01/22 14:40 Temp 37.2 Pulse 102 Resp 16 Pulse Ox 99 O2 Delivery Room Air (MARTA HERNADEZ MD) Height, Weight, BMI Height: 5'5.00" Weight: 160lbs. oz. 72.819269jn; 26.00 BMI Method:Stated General Appearance: WD/WN, no apparent distress Eyes: bilateral eye normal inspection, bilateral eye PERRL, bilateral eye EOMI, bilateral eye abnormal EOM Ears: bilateral ear auricle normal, bilateral ear canal normal, bilateral ear TM normal Nose: normal inspection Mouth/Throat: other (Oropharynx with erythema swelling with uvular deviation to the left with right peritonsillar swelling) Neck: non-tender, full range of motion, supple, normal inspection Cardiovascular: regular rate, rhythm, no edema, no gallop Respiratory: chest non-tender, lungs clear, no respiratory distress Gastrointestinal: normal bowel sounds, non tender, soft Neurologic/Psychiatric: boarding kennel or cattery operator II-XII nml as tested, no motor/sensory deficits, alert, normal mood/affect, oriented x 3 Skin: normal color (MARTA EASLEY) Procedures/Interventions Date of ETT Placement: Jun 01, 2022 Time of ETT Placement: 15:50 Intubation Method: orotracheal Tube Size: 7.5 Medications: Succinylcholine (ketamine) Positive End Tide CO2: Yes Breath Sounds after Intubation: bilateral-equal Intubation Complications: O2 saturation decreased (to 84%) Post Intubation Xray: Yes (ordered and pending) (MARTA HERNADEZ MD) Suture Size: 4-0 (MARTA EASLEY) Progress/Results/Core Measures Results/Orders Lab Results Laboratory Tests Test 06/01/22 14:48 06/01/22 15:15 Range/Units Group A Streptococcus Screen NEGATIVE NEGATIVE White Blood Count 14.5 H 4.3-11.0 10^3/uL Red Blood Count 4.45 4.30-5.52 10^6/uL Hemoglobin 14.1 13.3-17.7 g/dL Hematocrit 41 40-54 % Mean Corpuscular Volume 91 80-99 fL Mean Corpuscular Hemoglobin 32 25-34 pg Mean Corpuscular Hemoglobin Concent 35 32-36 g/dL Red Cell Distribution Width 12.2 10.0-14.5 % Platelet Count 331 130-400 10^3/uL Mean Platelet Volume 8.7 L 9.0-12.2 fL Immature Granulocyte % (Auto) 2 % Neutrophils (%) (Auto) 86 H 42-75 % Lymphocytes (%) (Auto) 5 L 12-44 % Monocytes (%) (Auto) 6 0-12 % Eosinophils (%) (Auto) 1 0-10 % Basophils (%) (Auto) 0 0-10 % Neutrophils # (Auto) 12.4 H 1.8-7.8 10^3/uL Lymphocytes # (Auto) 0.7 L 1.0-4.0 10^3/uL Monocytes # (Auto) 0.9 0.0-1.0 10^3/uL Eosinophils # (Auto) 0.2 0.0-0.3 10^3/uL Basophils # (Auto) 0.1 0.0-0.1 10^3/uL Immature Granulocyte # (Auto) 0.3 H 0.0-0.1 10^3/uL Neutrophils % (Manual) 89 % Lymphocytes % (Manual) 6 % Monocytes % (Manual) 4 % Basophils % (Manual) 1 % Blood Morphology Comment NORMAL Sodium Level 136 135-145 MMOL/L Potassium Level 3.4 L 3.6-5.0 MMOL/L Chloride Level 100 98-107 MMOL/L Carbon Dioxide Level 25 21-32 MMOL/L Anion Gap 11 5-14 MMOL/L Blood Urea Nitrogen 9 7-18 MG/DL Creatinine 0.87 0.60-1.30 MG/DL Estimat Glomerular Filtration Rate 118 BUN/Creatinine Ratio 10 Glucose Level 97 70-105 MG/DL Calcium Level 10.1 8.5-10.1 MG/DL Corrected Calcium 8.5-10.1 MG/DL Total Bilirubin 0.7 0.1-1.0 MG/DL Aspartate Amino Transf (AST/SGOT) 25 5-34 U/L Alanine Aminotransferase (ALT/SGPT) 12 0-55 U/L Alkaline Phosphatase 61 40-136 U/L Total Protein 8.5 H 6.4-8.2 GM/DL Albumin 4.6 H 3.2-4.5 GM/DL (MARTA HERNADEZ MD) Medications Given in ED Current Medications Medications Dose Ordered Sig/Dafne Route Start Time Stop Time Status Last Admin Dose Admin Clindamycin Phosphate/Dextrose 50 ml @ 100 mls/hr ONCE ONCE IV 06/01/22 15:00 06/01/22 15:29 DC 06/01/22 15:13 100 MLS/HR Dexamethasone Sodium Phosphate 10 mg ONCE ONCE IV 06/01/22 15:00 06/01/22 15:01 DC 06/01/22 15:12 10 MG Iohexol 100 ml ONCE ONCE IV 06/01/22 15:00 06/01/22 15:01 DC 06/01/22 15:23 75 ML Sodium Chloride 100 ml ONCE ONCE IV 06/01/22 15:00 06/01/22 15:01 DC 06/01/22 15:23 100 ML (MARTA HERNADEZ MD) Vital Signs/I&O 06/01/22 14:40 Temp 37.2 Pulse 102 Resp 16 B/P (MAP) Pulse Ox 99 O2 Delivery Room Air (MARTA HERNADEZ MD) Critical Care Note Critical Care Start Time: 17:00 Stop Time: 17:55 Total Time (minutes) 45 Progress Difficulty tolerating secretions, requiring intubation. (MARTA EASLEY) Departure Communication (PCP) Patient reports methamphetamine use this past weekend. Started developing sore throat difficulty swallowing the day after. Today reports difficulty breathing tolerate secretions. On arrival patient vital signs stable. Muffling voice difficulty tolerating secretions. Oropharynx with uvula deviation. No stridor noted. Concerning for tonsillar abscess, retropharyngeal abscess. Right-sided neck discomfort pain. Patient was afebrile but was slightly tachycardic. at tempted to grab blood cultures and a lactic acid patient refused second draw. Discussed with patient with the tachycardia and leukocytosis considered septic. Patient acknowledges. Lab work showed leukocytosis at 14. Normal kidney function. Patient Was given IV Decadron 10mg. Started on IV clindamycin 600mg. CT neck soft tissue shows retropharyngeal abscess with severe airway narrowing. Attempted to contact Dr. Limon and Dr. Sanders who recommended transfer to . Attempted to call [facility] who was not excepting transfers. Patient agreed to transfer to [facility]. Patient started having difficulty tolerating secretions. Patient was discussed with Dr. hernadez. Due to worsening symptoms potential late transfer recommended intubation to help secure airway due to his continues difficulty swallowing and having difficulty tolerating secretions. Discussed the risk and benefits of intubation. Patient agreed with procedure. This was discussed with family. Dr. Hernadez with successful intubation. Patient was then accepted to [facility] Dr. Chi in the ICU. This is considered a emergent transfer and patient used air by [facility]. Retropharyngeal abscess likely secondary to drug use. Denies of any IV drug use. Reports methamphetamine and marijuana use. (MARTA EASLEY) Impression Primary Impression: Retropharyngeal abscess Disposition: 02 XFER SHT-TRM HOSP Condition: Stable Transfer Transfer Reason: Exceeds level of care Time Spoke to Accepting Phy: 18:51 Transfer Progress Notes Accepted By Dr. Chi Transfer Time: 18:52 Transfer Facility: [facility] Method of Transfer: Air (MARTA EASLEY) Departure-Patient Inst. Referrals: NO,LOCAL PHYSICIAN (PCP/Family) Primary Care Physician MARTA EASLEY Jun 01, 2022 14:56 MARAT HERNADEZ MD Jun 01, 2022 18:01
[2022-06-01] MEDS ORDERED: HOLD METFORMIN - RECEIVED CONTRAST 20 ML VIAL IV SCH (15:00)
[2022-06-01] MEDS: fentaNYL INJ 100 MCG/2 ML AMP IVP STA (15:12)
[2022-06-01] MEDS: CLINDAMYCIN 600 MG/50 ML IVPB 50 ML IV ONE (15:13)
[2022-06-01] MEDS: NS 100 ML (IVPB) BAG IV ONE (15:23)
[2022-06-01] MEDS: IOHEXOL 350 MG/ML 100 ML (OMNIPAQUE 350) VIAL IV ONE (15:23)
[2022-06-01 15:34] LABS: BASOPHILS # (AUTO) 0.1 10^3/uL (0.0-0.1); BASOPHILS % (AUTO) 0 % (0-10); EOSINOPHILS # (AUTO) 0.2 10^3/uL (0.0-0.3); EOSINOPHILS % (AUTO) 1 % (0-10); HEMATOCRIT 41 % (40-54); HEMOGLOBIN 14.1 g/dL (13.3-17.7); LYMPHOCYTES # (AUTO) 0.7 10^3/uL (1.0-4.0); LYMPHOCYTES % (AUTO) 5 % (12-44); MEAN CORPUSCULAR HEMOGLOBIN 32 pg (25-34); MEAN CORPUSCULAR HGB CONC 35 g/dL (32-36); MEAN CORPUSCULAR VOLUME 91 fL (80-99); MEAN PLATELET VOLUME 8.7 fL (9.0-12.2); MONOCYTES # (AUTO) 0.9 10^3/uL (0.0-1.0); MONOCYTES % (AUTO) 6 % (0-12); NEUTROPHILS # (AUTO) 12.4 10^3/uL (1.8-7.8); NEUTROPHILS % (AUTO) 86 % (42-75); PLATELET COUNT 331 10^3/uL (130-400); WHITE BLOOD COUNT 14.5 10^3/uL (4.3-11.0)
[2022-06-01 15:39] LABS: ALBUMIN 4.6 GM/DL (3.2-4.5); CHLORIDE 100 MMOL/L (98-107); POTASSIUM 3.4 MMOL/L (3.6-5.0); SODIUM 136 MMOL/L (135-145)
[2022-06-01 15:40] LABS: CALCIUM 10.1 MG/DL (8.5-10.1)
[2022-06-01 15:42] LABS: GLUCOSE 97 MG/DL (70-105); TOTAL PROTEIN 8.5 GM/DL (6.4-8.2)
[2022-06-01 15:43] LABS: CARBON DIOXIDE 25 MMOL/L (21-32)
[2022-06-01 15:44] LABS: BILIRUBIN,TOTAL 0.7 MG/DL (0.1-1.0)
[2022-06-01 15:45] LABS: ALKALINE PHOSPHATASE 61 U/L (40-136); CREATININE SERUM 0.87 MG/DL (0.60-1.30); GFR ESTIMATED 118
[2022-06-01 15:46] LABS: BUN/CREATININE RATIO 10
[2022-06-01 15:48] LABS: ALANINE AMINOTRANSFERASE 12 U/L (0-55)
[2022-06-01 16:22] LABS: BASOPHILS % (MANUAL) 1 %; LYMPHOCYTES % (MANUAL) 6 %; MONOCYTES % (MANUAL) 4 %; NEUTROPHILS % (MANUAL) 89 %; RBC MORPH NORMAL
--- NOTE | 2022-06-01 16:32 | Diagnostic Imaging Report ---
CLINICAL INDICATION: Patient with sore throat. EXAM: Axial CT scan of the neck soft tissue performed with 75 mL of Omnipaque 350 IV contrast. Sagittal and coronal reformatted images are created. Auto Exposure Controls were utilized during the CT exam to meet ALARA standards for radiation dose reduction. COMPARISON: CT scan of the neck soft tissue dated 12/09/2017. FINDINGS: There is enlargement of the right palatine tonsil with retropharyngeal abscess seen with low density and peripheral enhancement. This abscess measures roughly 2.7 cm x 1.4 cm x 2.4 cm (AP x Trans x CC). There is severe airway narrowing. There is also prominence of the left palatine tonsil region. There is soft tissue enlargement and swelling of the soft palate and uvula region. The epiglottis, larynx, and hypopharyngeal soft tissue structures are unremarkable. The posterior nasopharynx is mildly prominent with the right side more so than the left, which appears grossly similar. The previously seen left tonsillitis has resolved. Reactive lymph nodes are seen bilaterally with the largest one in the right level II-A region. This lymph node in the right level II-A region measures 1.4 cm x 1.9 cm. The neck vascular structures are unremarkable. Thyroid gland is unremarkable. Salivary glands are unremarkable. Mild paraseptal emphysematous changes are seen. Limited visualization of the intracranial structures are unremarkable. Paranasal sinuses and mastoid air cells are clear. 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 There is absent right C1 right posterior arch. IMPRESSION: 1: There is right palatine tonsillitis with retrotonsillar abscess. There is associated severe narrowing of the airway. There is also swelling of the soft palate and prominence of the left palatine tonsil region. 2: There is reactive lymphadenopathy with the right side more than the left. Results of this report were discussed with OPAL Pierce, via the telephone on 06/01/2022 at 1610 hours. Dictated by: Dictated on workstation # [id number]
[2022-06-01] MEDS: PROPOFOL DRIP (ICU) 100 ML IV SCH (18:12)
[2022-06-01] MEDS: PROPOFOL DRIP (ICU) 100 ML IV ONE (18:12)
--- NOTE | 2022-06-01 18:13 | Diagnostic Imaging Report ---
INDICATION: ET tube placement FINDINGS: ET tube mid thoracic trachea. The lungs are clear. No failure, effusion or pneumothorax. IMPRESSION: No acute appearing abnormality. Dictated by: Dictated on workstation # [id number]
[2022-06-01 18:27] VITALS: BP 112/78
[2022-06-01] MEDS ORDERED: ROCURONIUM 10 MG/ML 5 ML SYRINGE IV ONE (20:15)
[2022-06-01 20:39] VITALS: BP 93/58
== END 2022-06-01 20:39 | disposition short-term general hospital (02) ==
LOC: EDUNIT# 13:58 → ER 14:00
DX: J39.0 Retropharyngeal and parapharyngeal abscess (principal); D72.829 Elevated white blood cell count, unspecified; M54.2 Cervicalgia; Z87.891 Personal history of nicotine dependence; Z28.310 Unvaccinated for COVID-19
CPT/HCPCS: 31500; 36415; 70491; 71045; 80053; 85007; 85027; 87430; 94002; 94799; 99291